=== PATIENT | female | born 1980 | race African-American/Black ===

== ENCOUNTER 2016-12-26 09:09 | Emergency (ER) | payer MEDICAID ==
[~2016-12-26] VITALS: Ht 160 cm; Wt 89.2 kg
[2016-12-26 09:20] VITALS: BP 129/85
[2016-12-26] MEDS ORDERED: BUTALB/APAP/CAFFEINE 50MG/325MG/40MG PO ONE (10:30)
== END 2016-12-26 11:49 | disposition home or self-care (01) ==
LOC: ED 10:12
DX: S63.501A Unspecified sprain of right wrist, initial encounter (principal); G43.909 Migraine, unspecified, not intractable, without status migrainosus; W01.0XXA Fall on same level from slipping, tripping and stumbling without subsequent striking against object, initial encounter; Y93.01 Activity, walking, marching and hiking; Y92.410 Unspecified street and highway as the place of occurrence of the external cause; Y99.9 Unspecified external cause status
CPT/HCPCS: 29125; 99284

== ENCOUNTER 2016-12-30 11:56 | Emergency (ER) | payer MEDICAID ==
[~2016-12-30] VITALS: Ht 160 cm; Wt 88.0 kg
[~2016-12-30 11:56] MED LIST: ACETAMINOPHEN 500 MG TABLET PO ONE
[2016-12-30] MEDS ORDERED: LORazepam 1MG TABLET ONE (12:28)
[2016-12-30] MEDS ORDERED: LORazepam 1MG TABLET PO ONE (12:30)
[2016-12-30 13:09] VITALS: BP 156/98
[2016-12-30] MEDS ORDERED: ACETAMINOPHEN 500 MG TABLET ONE (13:51)
== END 2016-12-30 14:03 | disposition home or self-care (01) ==
LOC: ED 13:17
DX: F41.1 Generalized anxiety disorder (principal); Z88.8 Allergy status to other drugs, medicaments and biological substances
CPT/HCPCS: 99284